=== PATIENT | female | born 1970 | race Caucasian/White ===

== ENCOUNTER 2018-01-14 08:00 | Outpatient (CLI) | payer MEDICAID ==
[2018-01-14 18:43] LABS: BASOPHILS % (AUTO) 0.6 %; EOSINOPHILS # (AUTO) 0.2 10^3/uL (0.0-0.7); HGB - HEMOGLOBIN 13.8 g/dL (12.0-16.0); LYMPHOCYTES # (AUTO) 2.1 10^3/uL (1.5-3.5); LYMPHOCYTES % (AUTO) 27.5 %; MEAN CORPUSCULAR HEMOGLOBIN 27.8 pg (27.0-31.0); MEAN CORPUSCULAR HGB CONC 33.6 g/dL (32.0-36.0); MEAN CORPUSCULAR VOLUME 82.7 fL (81.0-99.0); MEAN PLATELET VOLUME 10.2 fL (7.9-10.8); MONOCYTES # (AUTO) 0.5 10^3/uL (0.0-1.0); MONOCYTES % (AUTO) 6.1 %; NEUTROPHILS # (AUTO) 4.8 10^3/uL (1.5-6.6); NEUTROPHILS % (AUTO) 63.8 %; PLT - PLATELET COUNT 170 10^3/uL (130-450); RED BLOOD COUNT 4.97 10^6/uL (4.20-5.40); RED CELL DISTRIBUTION WIDTH 14.6 % (12.0-15.0); WHITE BLOOD COUNT 7.5 x10^3/uL (4.8-10.8)
[2018-01-14 18:53] LABS: CALCIUM 9.3 mg/dL (8.5-10.3); CREATININE 0.7 mg/dL (0.4-1.0)
[2018-01-14 19:00] LABS: HB2 TOTAL 15.1 g/dL; HEMOGLOBIN A1C 0.46 g/dL; HEMOGLOBIN A1C % 4.9 % (4.6-6.2)
[2018-01-14 19:10] LABS: THYROID STIMULATING HORMONE 0.9 uIU/mL (0.34-5.60)
[2018-01-14 19:21] LABS: FOLATE 16.25 ng/mL (5.90 - >24.8)
== END 2018-01-14 08:01 | disposition home or self-care (01) ==
LOC: LAB.N 08:00
PROVIDERS: ATTEND Physician Assistant Medical
DX: Z00.00 Encounter for general adult medical examination without abnormal findings (principal); R20.2 Paresthesia of skin; E66.9 Obesity, unspecified
CPT/HCPCS: 36415; 80048; 82607; 82746; 83036; 84443; 85025

== ENCOUNTER 2018-03-19 10:42 | Outpatient (CLI) | payer MEDICAID | END 2018-03-19 10:43 | disposition home or self-care (01) | LOC: SC 10:42 | PROVIDERS: ATTEND Internal Medicine Pulmonary Disease | DX: G47.33 Obstructive sleep apnea (adult) (pediatric) (principal); E66.9 Obesity, unspecified; Z68.37 Body mass index [BMI] 37.0-37.9, adult | CPT/HCPCS: 99203; 99212 ==

== ENCOUNTER 2018-06-03 09:55 | Outpatient (CLI) | payer MEDICAID | END 2018-06-03 09:56 | disposition home or self-care (01) | LOC: SC 09:55 | PROVIDERS: ATTEND Nurse Practitioner Family | DX: G47.33 Obstructive sleep apnea (adult) (pediatric) (principal) | CPT/HCPCS: 99212; 99214 ==

== ENCOUNTER 2018-09-02 09:11 | Outpatient (CLI) | payer MEDICAID ==
[2018-09-02 12:02] LABS: CALCIUM 9.4 mg/dL (8.5-10.3); CREATININE 0.7 mg/dL (0.4-1.0)
[2018-09-02 12:26] LABS: BASOPHILS % (AUTO) 0.6 %; EOSINOPHILS # (AUTO) 0.2 10^3/uL (0.0-0.7); EOSINOPHILS % (AUTO) 2.6 %; HGB - HEMOGLOBIN 12.5 g/dL (12.0-16.0); LYMPHOCYTES # (AUTO) 1.6 10^3/uL (1.5-3.5); LYMPHOCYTES % (AUTO) 23.4 %; MEAN CORPUSCULAR HEMOGLOBIN 27.1 pg (27.0-31.0); MEAN CORPUSCULAR HGB CONC 32.6 g/dL (32.0-36.0); MEAN CORPUSCULAR VOLUME 82.9 fL (81.0-99.0); MEAN PLATELET VOLUME 11.3 fL (7.9-10.8); MONOCYTES # (AUTO) 0.4 10^3/uL (0.0-1.0); MONOCYTES % (AUTO) 6.1 %; NEUTROPHILS # (AUTO) 4.6 10^3/uL (1.5-6.6); NEUTROPHILS % (AUTO) 66.7 %; PLT - PLATELET COUNT 171 10^3/uL (130-450); RED BLOOD COUNT 4.62 10^6/uL (4.20-5.40); RED CELL DISTRIBUTION WIDTH 13.3 % (12.0-15.0); WHITE BLOOD COUNT 6.9 x10^3/uL (4.8-10.8)
== END 2018-09-02 09:45 | disposition home or self-care (01) ==
LOC: LAB.N 09:11
PROVIDERS: ATTEND Physician Assistant Medical
DX: D64.9 Anemia, unspecified (principal)
CPT/HCPCS: 36415; 80048; 85025

== ENCOUNTER 2019-12-11 10:10 | Outpatient (CLI) | payer MEDICAID ==
[2019-12-11 11:59] LABS: BASOPHILS % (AUTO) 0.6 %; EOSINOPHILS # (AUTO) 0.1 10^3/uL (0.0-0.7); EOSINOPHILS % (AUTO) 2.4 %; HGB - HEMOGLOBIN 12.9 g/dL (12.0-16.0); LYMPHOCYTES # (AUTO) 1.5 10^3/uL (1.5-3.5); LYMPHOCYTES % (AUTO) 28.9 %; MEAN CORPUSCULAR HEMOGLOBIN 25.8 pg (27.0-31.0); MEAN CORPUSCULAR VOLUME 80.6 fL (81.0-99.0); MEAN PLATELET VOLUME 11.4 fL (7.9-10.8); MONOCYTES # (AUTO) 0.3 10^3/uL (0.0-1.0); MONOCYTES % (AUTO) 5.6 %; NEUTROPHILS # (AUTO) 3.1 10^3/uL (1.5-6.6); NEUTROPHILS % (AUTO) 61.9 %; PLT - PLATELET COUNT 163 10^3/uL (130-450); RED CELL DISTRIBUTION WIDTH 14.1 % (12.0-15.0)
[2019-12-11 12:14] LABS: ALBUMIN 4.4 g/dL (3.2-5.5); ALBUMIN/GLOBULIN RATIO 1.6 (1.0-2.2); ALKALINE PHOSPHATASE 69 IU/L (42-121); ALT ALANINE AMINOTRANSFERASE 20 IU/L (10-60); AST ASPARTATE AMINOTRANSFERASE 19 IU/L (10-42); BILIRUBIN,TOTAL 0.4 mg/dL (0.2-1.0); BUN - BLOOD UREA NITROGEN 14 mg/dL (6-20); CARBON DIOXIDE - CO2 26 mmol/L (21-32); CHLORIDE 107 mmol/L (101-111); CHOL/HDL RATIO 2.4 (<4.4); CHOLESTEROL 160 mg/dL; CREATININE 0.7 mg/dL (0.4-1.0); GLUCOSE 111 mg/dL (70-100); HDL CHOLESTEROL 67 mg/dL; LDL CHOLESTEROL,CALCULATED 81 mg/dL; LDL/HDL RATIO 1.2 (<4.4); SODIUM 140 mmol/L (135-145); TOTAL PROTEIN 7.1 g/dL (6.7-8.2); VLDL CHOLESTEROL 12 mg/dL
[2019-12-11 12:33] LABS: HEMOGLOBIN A1c% 5.2 % (4.27-6.07)
== END 2019-12-11 23:59 | disposition home or self-care (01) ==
LOC: LAB.WCP 10:10
PROVIDERS: ATTEND Physician Assistant
DX: Z00.00 Encounter for general adult medical examination without abnormal findings (principal); E66.9 Obesity, unspecified
CPT/HCPCS: 36415; 80053; 80061; 83036; 83721; 84443; 85025

== ENCOUNTER 2020-05-24 08:00 | Outpatient (CLI) | payer MEDICAID ==
[2020-05-24 17:53] LABS: BASOPHILS % (AUTO) 0.6 %; EOSINOPHILS # (AUTO) 0.2 10^3/uL (0.0-0.7); EOSINOPHILS % (AUTO) 3.5 %; HCT - HEMATOCRIT 40.6 % (37.0-47.0); HGB - HEMOGLOBIN 12.7 g/dL (12.0-16.0); LYMPHOCYTES # (AUTO) 1.9 10^3/uL (1.5-3.5); LYMPHOCYTES % (AUTO) 28.7 %; MEAN CORPUSCULAR HEMOGLOBIN 25.1 pg (27.0-31.0); MEAN CORPUSCULAR HGB CONC 31.3 g/dL (32.0-36.0); MEAN CORPUSCULAR VOLUME 80.2 fL (81.0-99.0); MEAN PLATELET VOLUME 11.5 fL (7.9-10.8); MONOCYTES # (AUTO) 0.5 10^3/uL (0.0-1.0); MONOCYTES % (AUTO) 7.2 %; NEUTROPHILS # (AUTO) 3.9 10^3/uL (1.5-6.6); NEUTROPHILS % (AUTO) 59.5 %; PLT - PLATELET COUNT 183 10^3/uL (130-450); RED BLOOD COUNT 5.06 10^6/uL (4.20-5.40); WHITE BLOOD COUNT 6.5 x10^3/uL (4.8-10.8)
[2020-05-24 18:14] LABS: ALBUMIN 4.4 g/dL (3.2-5.5); ALBUMIN/GLOBULIN RATIO 1.6 (1.0-2.2); ALKALINE PHOSPHATASE 73 IU/L (42-121); ALT ALANINE AMINOTRANSFERASE 21 IU/L (10-60); AST ASPARTATE AMINOTRANSFERASE 25 IU/L (10-42); BILIRUBIN,TOTAL 0.7 mg/dL (0.2-1.0); BUN - BLOOD UREA NITROGEN 12 mg/dL (6-20); CALCIUM 9.1 mg/dL (8.5-10.3); CARBON DIOXIDE - CO2 26 mmol/L (21-32); CHLORIDE 107 mmol/L (101-111); CHOL/HDL RATIO 2.3 (<4.4); CHOLESTEROL 165 mg/dL; CREATININE 0.8 mg/dL (0.4-1.0); GFR - MDRD 76 (>89); GLUCOSE 113 mg/dL (70-100); HDL CHOLESTEROL 71 mg/dL; LDL CHOLESTEROL,CALCULATED 82 mg/dL; LDL/HDL RATIO 1.2 (<4.4); POTASSIUM 4.5 mmol/L (3.5-5.0); SODIUM 140 mmol/L (135-145); TOTAL PROTEIN 7.1 g/dL (6.7-8.2); TRIGLYCERIDES 58 mg/dL; VLDL CHOLESTEROL 12 mg/dL
[2020-05-24 18:22] LABS: THYROID STIMULATING HORMONE 0.65 uIU/mL (0.34-5.60)
[2020-05-24 19:57] LABS: ESTIMATED AVERAGE GLUCOSE 105 mg/dL (70-100); HEMOGLOBIN A1c% 5.3 % (4.27-6.07)
== END 2020-05-24 23:59 | disposition home or self-care (01) ==
LOC: LAB.WCP 08:00
PROVIDERS: ATTEND Nurse Practitioner Family
DX: R53.83 Other fatigue (principal); D64.9 Anemia, unspecified; E66.9 Obesity, unspecified
CPT/HCPCS: 36415; 80053; 80061; 82306; 83036; 83721; 84443; 85025

== ENCOUNTER 2020-06-25 21:10 | Outpatient (CLI) | payer MEDICAID | END 2020-06-25 21:11 | disposition home or self-care (01) | LOC: LAB 21:10 | PROVIDERS: ATTEND Emergency Medicine | DX: Z53.9 Procedure and treatment not carried out, unspecified reason (principal) | CPT/HCPCS: 86317 ==

== ENCOUNTER 2020-07-16 15:40 | Outpatient (CLI) | payer MEDICAID | END 2020-07-16 15:41 | disposition home or self-care (01) | LOC: COV 15:40 | PROVIDERS: ATTEND Surgery | DX: Z01.812 Encounter for preprocedural laboratory examination (principal); K21.9 Gastro-esophageal reflux disease without esophagitis; Z12.11 Encounter for screening for malignant neoplasm of colon; G47.30 Sleep apnea, unspecified; Z20.822 Contact with and (suspected) exposure to COVID-19 ==

== ENCOUNTER 2020-07-19 11:08 | Day surgery (SDC) | payer MEDICAID ==
[2020-07-19 11:30] LABS: HCG UR QUAL NEGATIVE
[2020-07-19] MEDS ORDERED: LACTATED RINGERS 1,000 ML IV ONE ×2 (11:30→14:07)
--- NOTE | 2020-07-19 12:16 | ANESTHESIA ---
Pre-Anesthesia VS, & Labs - Diagnosis screening exam, GERD - Procedure EGD, Colonoscopy Height: 5 ft Weight (kg): 97 kg Body Mass Index: 41.8 BMI Classification: Morbidly Obese - NPO >8 hours - Is Patient ?: No Home Medications and Allergies Home Medications: Ambulatory Orders DULoxetine [Cymbalta] 30 mg PO DAILY 07/16/20 Nortriptyline [Pamelor] 30 mg PO DAILY 07/16/20 DULoxetine [Cymbalta] 30 mg PO DAILY 07/16/20 Nortriptyline [Pamelor] 30 mg PO DAILY 07/16/20 Allergies/Adverse Reactions: Allergies Allergy/AdvReac Type Severity Reaction Status Date / Time gluten AdvReac Cramps Verified 07/16/20 13:46 penicillin G AdvReac Cramps Verified 07/16/20 13:46 Anes History & Medical History - Medical History Cardiovascular: reports: None Pulmonary: reports: Sleep apnea, CPAP use Gastrointestinal: reports: GERD (2 times per week, occasionally) Urinary: reports: Incontinence Neuro: reports: None Musculoskeletal: reports: None Endocrine/Autoimmune: reports: None Blood Disorders: reports: None Skin: reports: None Smoking Status: Former smoker (Quit 2006) Psychosocial: reports: Depression, Other (Fibromyalgia) History of Cancer?: Yes (Breast cancer) - Surgical History General: reports: Other Eyes Ears Nose Throat (EENT): reports: Tonsil/Adenoidectomy Gynecologic: reports: Mastectomy (Bilateral) Exam General: Alert, Oriented x3, Cooperative, No acute distress Dental: WNL Mouth Openin Fingerbreadth Neck Mobility: Normal Mallampati classification: III Thyromental Distance: 4-6 cm Mental/Cognitive Status: Alert/Oriented X3, Normal for patient Plan Anesthesia Type: Total IV Consent for Procedure(s) Verified and Reviewed: Yes Code Status: Attempt Resuscitation ASA classification: 2-Mild systemic disease Is this case an emergency?: No
[2020-07-19] MEDS ORDERED: MIDAZOLAM 2 MG/2 ML VIAL ONE (13:06)
[2020-07-19] MEDS ORDERED: PROPOFOL 200 MG/20 ML VIAL IVP ONE (13:06)
[2020-07-19] MEDS ORDERED: fentaNYL 100 MCG/2 ML VIAL ONE (13:06)
[2020-07-19] MEDS ORDERED: LIDOCAINE-MPF 2% 5 ML VIAL ONE (13:30)
[2020-07-19] MEDS ORDERED: ACETAMINOPHEN 500 MG TABLET PO ONE (14:15)
--- NOTE | 2020-07-19 14:16 | ANESTHESIA POST OP EVALUATION ---
Anesthesia Post Eval - Post Anesthesia Eval Vitals: Last Vital Signs Temp 36.8 C 07/19/20 14:03 Pulse 105 H 07/19/20 14:10 Resp 24 07/19/20 14:10 BP 93/67 07/19/20 14:10 Pulse Ox 99 07/19/20 14:10 CV Function Including HR & BP: Stable Pain Control: Satisfactory Nausea & Vomiting: Negative Mental Status: Baseline Respiratory Status: Airway Patent Hydration Status: Satisfactory Anesthesia Complications: None
[2020-07-19 14:40] VITALS: BP 110/68
== END 2020-07-19 11:09 | disposition home or self-care (01) ==
LOC: SDS 11:08
PROVIDERS: ATTEND Surgery
PROC: 0DB48ZX Excision of Esophagogastric Junction, Via Natural or Artificial Opening Endoscopic, Diagnostic (ICD-10-PCS; principal; 2020-07-19 12:15)
PROC: 0DJD8ZZ Inspection of Lower Intestinal Tract, Via Natural or Artificial Opening Endoscopic (ICD-10-PCS; 2020-07-19 12:15)
DX: Z12.11 Encounter for screening for malignant neoplasm of colon (principal); K21.00 Gastro-esophageal reflux disease with esophagitis, without bleeding; K64.8 Other hemorrhoids; G47.30 Sleep apnea, unspecified; R32 Unspecified urinary incontinence; E66.01 Morbid (severe) obesity due to excess calories; M79.7 Fibromyalgia; F32.9 Major depressive disorder, single episode, unspecified; Z68.41 Body mass index [BMI] 40.0-44.9, adult; Z79.899 Other long term (current) drug therapy; Z87.891 Personal history of nicotine dependence; Z85.3 Personal history of malignant neoplasm of breast; Z90.13 Acquired absence of bilateral breasts and nipples
CPT/HCPCS: 43239; 45378; 81025; A9270; J7120

== ENCOUNTER 2020-08-11 11:39 | Outpatient (CLI) | payer MEDICAID ==
--- NOTE | 2020-08-11 12:07 | SLEEP CARE CONSULTATION ---
Information from patient questionnaire entered by Lauren Hawley. I have reviewed and concur with the information entered by Lauren Hawley. This document represents the service I personally performed and the decisions made by , Jazzy Pearson ARNP. History of Present Illness Service Date and Time: 08/11/2020 1139 Previous diagnosis: Mild, Obstructive Sleep Apnea-Hypopnea Syndrome AHI: 8.4 (in 2016) Reason for follow up: annual (last seen 08/2019) Equipment type: CPAP Equipment obtained from: [facility] (getting supplies as needed) Mask style: Full face Backup mask available: Yes (old mask) Last cushion change: 1.5 months Prior sleep studies: Yes Year and Where: 2016 - [facility] in [facility] additional information: JESUS CHAVEZ was diagnosed to have mild, AHI 8.4, obstructive sleep apnea- hypopnea syndrome and returns via Telehealth today for CPAP therapy annual follow-up. CPAP Compliance Data - Data Reviewed with Patient Average duration of nightly device use: 9 hr 21 min Compliance rate %: 97 (180 days) Current pressure setting (cmH2O): 5-13 Humidity settin Average residual AHI: 1.0 Subjective Patient concerns: reports: air blowing in eyes, mask leak noise (due to wear and tear of supplies), dry mouth, nose, throat (does have allergies which contribute). denies: aerophagia, mask discomfort, condensation in mask/hose, nasal congestion, epistaxis, other Observed to snore while using device: Yes (occasionally will wake herself up at beginning of night, not in middle nigh) Current pressure setting perceived as: comfortable On therapy, patient: reports: sleeping better, awakening more refreshed, being more awake and alert during the day, more rested overall. denies: drowsiness while driving Initial [place] Sleepiness Scale score: 11 (in 2019) Current [place] Sleepiness Scale score: 3 Allergies and Home Medications Home medication list reviewed: Yes (Amitriptyline 30 mg) Review of Systems Review of systems same as previous: Yes (no changes) Physical Exam Vital signs obtained and entered by: Telehealth visit to reduce exposure during Covid pandemic Height: 5 ft Weight change since last visit: 10-15 lb gain possibly per patient Impression and Plan 1. Obstructive Sleep Apnea-Hypopnea Syndrome, mild, with good treatment compliance and good apnea control. On CPAP therapy, the patient has better sleep quality and is more rested overall. Patient states she does sometimes get some air in her eyes and mouth noises when her headgear has to be tightened due to wear and tear. She is using [facility] for her DME and she states sometimes she would like to change her mask but they want a mask fitting. She would like to have someone who would just look at her old measurements and get her mask without her having to go into the office for another fitting. She states she is going to give them a call and check to see if they can do that before she decides to transfer her DME. She will let us know if there needs to be a transfer of care. No other changes needed today. Patient's apnea severity and rationale for treatment to reduce apnea, improve sleep quality and reduce cardiovascular and cerebrovascular events was reviewed. * Continue auto CPAP pressure at 5-13 cmH2O * Notify me if snoring with mask or feeling that the pressure is too much or too little * Attempt to lose weight * Call this office if any problems using CPAP * Return for follow up in 1 year, or sooner if concerns arise Counseling Topics: Spare mask, Weight loss health impact Visit Type: Telehealth Video Video Type: VSee Patient Location: Home Location of Provider: Office Patient agrees and consents to this telehealth visit type: Yes Patient agrees to have their insurance billed: Yes Time Spent with Patient (minutes): 17 Provider Statement: I spent 100% of the Telehealth Video Call with the patient with greater than 50% spent counseling the patient and coordination of care.
== END 2020-08-11 11:40 | disposition home or self-care (01) ==
LOC: SC 11:39
PROVIDERS: ATTEND Nurse Practitioner Family
DX: G47.33 Obstructive sleep apnea (adult) (pediatric) (principal)

== ENCOUNTER 2021-09-22 10:17 | Outpatient (CLI) | payer BC ==
[2021-09-22 11:07] VITALS: BP 129/79
--- NOTE | 2021-09-22 11:07 | SLEEP CARE CONSULTATION ---
Information from patient questionnaire entered by Mart Crum MA. I have reviewed and concur with the information entered by Mart Crum MA. This document represents the service I personally performed and the decisions made by , Jazzy Pearson ARNP. History of Present Illness Service Date and Time: 09/22/2021 1017 Previous diagnosis: Mild, Obstructive Sleep Apnea-Hypopnea Syndrome AHI: 8.4 (in 2015) Reason for follow up: annual (LAST SEEN 08/2020, RESMED, SHELBY 04/03/2018, ) Equipment type: CPAP Equipment obtained from: Other ([facility]; getting supplies as needed) Mask style: Full face Mask brand: Resmed (Airfit) Backup mask available: Yes (old mask) Last cushion change: too long Prior sleep studies: Yes Year and Where: 2015 - [facility] in [place], [place] HPI additional information: JESUS CHAVEZ was diagnosed to have mild, AHI 8.4, obstructive sleep apnea- hypopnea syndrome and returned today for CPAP therapy annual follow-up. Sleep Study - Results Prior sleep studies: Yes Year and Where: 2015 - [facility] in [place], [place] CPAP Compliance Data - Data Reviewed with Patient Average duration of nightly device use: 9 HOURS 6 MINUTES Compliance rate %: 99 (03/25/21-09/20/21; 179/180 days used) Current pressure setting (cmH2O): 5-13 Average residual AHI: 1.2 Central apnea: .1 Obstructive apnea: .6 Hypopnea: .2 Average large leak: .1 Subjective Missed days of use due to: reports: other (power outage) Patient concerns: reports: air blowing in eyes (needs to replace cushion). denies: aerophagia, mask discomfort, mask leak noise, condensation in mask/hose, nasal congestion, dry mouth, nose, throat, epistaxis, other Observed to snore while using device: Yes (just when falling asleep during ramp time) Current pressure setting perceived as: comfortable On therapy, patient: reports: more rested overall, other (uses to keep oxygen level up and to treat fibromyalgia). denies: drowsiness while driving Initial [place] Sleepiness Scale score: 11 (in 2019) Current [place] Sleepiness Scale score: 13 Allergies and Home Medications Known drug allergies: Yes (PN) Home medication list reviewed: Yes (Nortriptyline; Duloxetine) Allergy and home medication list: Allergies gluten Adverse Reaction (Verified 07/16/20 13:46) Cramps penicillin G Adverse Reaction (Verified 07/16/20 13:46) Cramps Review of Systems Review of systems same as previous: Yes (allergy testing for chronic cough) Physical Exam Vital signs obtained and entered by: Frank MOY CMA AAESMER Blood Pressure: 129/79 (RESP 16, PULSE 79, RIGHT) Heart Rate: 77 O2 Saturation: 97 (N95) Height: 5 ft Weight: 220 lb (CLOTHES) Weight change since last visit: LOSE - GLUTEN DIET, NO SUGAR Body Mass Index: 43.0 BMI Classification: Morbidly Obese Impression and Plan 1. Obstructive Sleep Apnea-Hypopnea Syndrome, mild, with good treatment compliance and good apnea control. On CPAP therapy, the patient has better sleep quality and is more rested overall. Patient is satisfied with current CPAP therapy and feels the pressure is comfortable. She does have a history of fibromyalgia so her [place] is still a little elevated, probably more related to her fibromyalgia. She states she had a friend tell her that she snored as she was falling asleep when they went on a trip together when she had her CPAP on. We discussed that this is probably due to the ramp starting pressure not being enough since she normally needs at least 12 cm H2O for good apnea control. She voiced understanding. Patient denies problems with oral dryness, nasal congestion, epistaxis, skin irritation or aerophagia. Patient's apnea severity and rationale for treatment to reduce apnea, improve sleep quality and reduce cardiovascular and cerebrovascular events was reviewed. 2. Obesity, unspecified. Currently patients BMI is [43.0]. Obesity increases the risk of apnea, CPAP pressure requirements and overall health risks especially cardiovascular and diabetes. Thus patient is advised to[ continue to try to] lose weight. Weight loss can be done with reducing portion size, redu cing refined foods and balancing content with vegetables, fruit and whole grain foods. In addition, patient encouraged to get regular exercise. * Continue auto CPAP pressure at 5-13 cmH2O * Notify me if snoring with mask or feeling that the pressure is too much or too little * Attempt to lose weight * Call this office if any problems using CPAP * Return for follow up in 1 year, or sooner if concerns arise Counseling Topics: Spare mask, Weight loss health impact Visit Type: In Office Time Spent with Patient (minutes): 23 Provider Statement: I spent 100% of the Face to Face Visit with the patient with greater than 50% spent counseling the patient and coordination of care.
== END 2021-09-22 10:18 | disposition home or self-care (01) ==
LOC: SC 10:17
PROVIDERS: ATTEND Nurse Practitioner Family
DX: G47.33 Obstructive sleep apnea (adult) (pediatric) (principal); E66.01 Morbid (severe) obesity due to excess calories; Z68.41 Body mass index [BMI] 40.0-44.9, adult
CPT/HCPCS: 99212; 99213

== ENCOUNTER 2021-10-27 13:31 | Outpatient (CLI) | payer BC ==
--- NOTE | 2021-10-28 10:58 | Ultrasound Report ---
ULTRASOUND OF LEFT BREAST: 10/27/2021 CLINICAL: Patient returns today to evaluate an asymmetry in the left breast / chest... luoq per order . Pt has no compalint rt breast / chest. No prior exams were available for comparison. Real-time ultrasound of the left breast was performed. Pollock scale images of the real-time examinati on were reviewed. The right axilla was interogated and normal appearing lymph nodes are visualized. IMPRESSION: BENIGN No right axillary adenopathy. There is no sonographic evidence of malignancy. There is no sonographic abnormality seen at the right chest wall to correspond with the palpable abno rmality, however, clinical followup is recommended. This exam was interpreted at Station ID: [id number]. Electronically Signed By: Heather Dejesus M.D. lk/:10/27/2021 14:27:35 Ultrasound BI-RADS: 2 Benign BI-RADS CATEGORY: (2) - 2 RECOMMENDATION: (ANNUAL) - Recommend routine annual screening mammography. [id number] 1 year screening LATERALITY: (B)
== END 2021-10-27 13:32 | disposition home or self-care (01) ==
LOC: DI 13:31
PROVIDERS: ATTEND Nurse Practitioner
DX: I97.2 Postmastectomy lymphedema syndrome (principal)

== ENCOUNTER 2021-12-21 12:22 | Outpatient (CLI) | payer BC ==
[2021-12-21 12:35] LABS: BASOPHILS % (AUTO) 0.4 %; EOSINOPHILS # (AUTO) 0.2 10^3/uL (0.0-0.7); EOSINOPHILS % (AUTO) 2.8 %; LYMPHOCYTES % (AUTO) 27.2 %; MEAN CORPUSCULAR HEMOGLOBIN 26.6 pg (27.0-31.0); MEAN CORPUSCULAR HGB CONC 32.6 g/dL (32.0-36.0); MEAN CORPUSCULAR VOLUME 81.6 fL (81.0-99.0); MEAN PLATELET VOLUME 10.5 fL (7.9-10.8); MONOCYTES # (AUTO) 0.5 10^3/uL (0.0-1.0); NEUTROPHILS # (AUTO) 4.6 10^3/uL (1.5-6.6); NEUTROPHILS % (AUTO) 62.2 %; PLT - PLATELET COUNT 179 10^3/uL (130-450); RED BLOOD COUNT 5.27 10^6/uL (4.20-5.40); RED CELL DISTRIBUTION WIDTH 14.4 % (12.0-15.0); WHITE BLOOD COUNT 7.4 x10^3/uL (4.8-10.8)
[2021-12-21 13:03] LABS: ALBUMIN 4.6 g/dL (3.2-5.5); ALBUMIN/GLOBULIN RATIO 1.8 (1.0-2.2); BILIRUBIN,TOTAL 0.6 mg/dL (0.2-1.0); CREATININE 0.9 mg/dL (0.4-1.0); POTASSIUM 4.1 mmol/L (3.5-5.0); TOTAL PROTEIN 7.2 g/dL (6.7-8.2)
[2021-12-21 13:06] LABS: THYROID STIMULATING HORMONE 0.88 uIU/mL (0.34-5.60)
[2021-12-21 13:14] LABS: FERRITIN 28.1 ng/mL (11.0-306.8)
[2021-12-21 13:17] LABS: FOLATE 9.5 ng/mL (5.90 - >24.8)
== END 2021-12-21 12:23 | disposition home or self-care (01) ==
LOC: LAB 12:22
PROVIDERS: ATTEND Family Medicine
DX: E56.9 Vitamin deficiency, unspecified (principal); M79.7 Fibromyalgia; R53.82 Chronic fatigue, unspecified; Z85.3 Personal history of malignant neoplasm of breast
CPT/HCPCS: 36415; 80053; 82306; 82607; 82728; 82746; 83540; 84443; 84466; 85025

== ENCOUNTER 2022-10-04 15:13 | Outpatient (CLI) | payer BC ==
--- NOTE | 2022-10-04 15:25 | SLEEP CARE CONSULTATION ---
Information from patient questionnaire entered by Jeanna Quinonez. I have reviewed and concur with the information entered by Jeanna Quinonez. This document represents the service I personally performed and the decisions made by , Jazzy Pearson ARNP. History of Present Illness Service Date and Time: 10/04/2022 1500 Previous diagnosis: Mild, Obstructive Sleep Apnea-Hypopnea Syndrome AHI: 8.4 (in 2015) Reason for follow up: annual (Last seen 09/2021) Equipment type: CPAP (Airsense 10, s/u 03/2018) Equipment obtained from: Other ([facility]; getting supplies as needed) Mask style: Full face Mask brand: Respironics (Co.Importwear) Backup mask available: Yes (old mask) Last cushion change: couple months Prior sleep studies: Yes Year and Where: 2015 - [facility] in [place], [place] HPI additional information: JESUS CHAVEZ was diagnosed to have mild, AHI 8.4, obstructive sleep apnea- hypopnea syndrome and returned today for CPAP therapy annual follow-up. Sleep Study - Results Prior sleep studies: Yes Year and Where: 2015 - [facility] in [place], [place] CPAP Compliance Data - Data Reviewed with Patient Average duration of nightly device use: 8 h 51 min Compliance rate %: 98 (180/180 days used) Current pressure setting (cmH2O): 5-13 (avg 12.8) Average residual AHI: 2.8 Central apnea: 0.1 Obstructive apnea: 2 Hypopnea: 0.5 Average large leak: 0.1 L/min Subjective Missed days of use due to: reports: other (power outage) Patient concerns: reports: air blowing in eyes (occasional), mask leak noise (occasional), other (rash on face). denies: aerophagia, mask discomfort, condensation in mask/hose, nasal congestion, dry mouth, nose, throat, epistaxis Observed to snore while using device: Yes (in the beginning of night) Current pressure setting perceived as: comfortable On therapy, patient: reports: sleeping better, awakening more refreshed, being more awake and alert during the day, more rested overall, drowsiness while driving (little bit during day, in afternoon mainly) Initial [place] Sleepiness Scale score: 11 (in 2018) Current [place] Sleepiness Scale score: 12 Allergies and Home Medications Known drug allergies: Yes (penicillin G) Drug allergies reviewed: Yes Home medication list reviewed: Yes (no changes) Allergy and home medication list: Allergies gluten Adverse Reaction Cramps penicillin G Adverse Reaction Cramps Review of Systems Review of systems same as previous: No (hypersensitivity cough) Physical Exam Vital signs obtained and entered by: Jazzy Colin NP Blood Pressure: 114/75 Cuff size: wrist (right) Heart Rate: 82 O2 Saturation: 99 Height: 5 ft Weight: 221 lb 9.6 oz Body Mass Index: 43.2 BMI Classification: Morbidly Obese Impression and Plan 1. Obstructive Sleep Apnea-Hypopnea Syndrome, mild, with good treatment compliance and good apnea control. On CPAP therapy, the patient has better sleep quality and is more rested overall. She states she still has snoring when she initially puts her mask on. To resolve snore, the CPAP pressure will be changed to 8-13 cmH20. Patient advised to contact this office if pressure change uncomfortable or if pressure change does not resolve snore. Patient's apnea severity and rationale for treatment to reduce apnea, improve sleep quality and reduce cardiovascular and cerebrovascular events was reviewed. I also reviewed the benefit of consistent device use of CPAP for fibromyalgia. 2. Obesity, unspecified. Currently patients BMI is 43.2. Obesity increases the risk of apnea, CPAP pressure requirements and overall health risks especially cardiovascular and diabetes. Thus patient is advised to lose weight. * Change auto CPAP pressure to 8-13 cmH2O * Update supply prescription * Notify me if snoring with mask or feeling that the pressure is too much or too little * Attempt to lose weight * Call this office if any problems using CPAP * Return for follow up in 1 year, or sooner if concerns arise Counseling Topics: Spare mask, Weight loss health impact Visit Type: In Office Time Spent with Patient (minutes): 24 Provider Statement: I spent 100% of the Face to Face Visit with the patient with greater than 50% spent counseling the patient and coordination of care.
[2022-10-04 15:31] VITALS: BP 114/75
== END 2022-10-04 15:14 | disposition home or self-care (01) ==
LOC: SC 15:13
PROVIDERS: ATTEND Nurse Practitioner Family
DX: G47.33 Obstructive sleep apnea (adult) (pediatric) (principal); E66.01 Morbid (severe) obesity due to excess calories; Z68.41 Body mass index [BMI] 40.0-44.9, adult
CPT/HCPCS: 99212; 99213

== ENCOUNTER 2023-04-04 12:36 | Outpatient (CLI) | payer BC ==
--- NOTE | 2023-04-04 12:02 | SLEEP CARE CONSULTATION ---
Information from patient questionnaire entered by Tadeo Estrada. I have reviewed and concur with the information entered by Tadeo Estrada. This document represents the service I personally performed and the decisions made by me, Jazzy Pearson ARNP. History of Present Illness Service Date and Time: 04/04/2023 1120 Previous diagnosis: Mild, Obstructive Sleep Apnea-Hypopnea Syndrome AHI: 8.4 (in 2015) Reason for follow up: other (5 MONTH F/U) Equipment type: CPAP (Airsense 10, s/u 03/2018) Equipment obtained from: Other ([facility]; getting supplies as needed) Mask style: Full face Mask brand: Respironics (Dreamwear) Backup mask available: Yes (old mask) Last cushion change: couple weeks ago Prior sleep studies: Yes Year and Where: 2015 - [facility] in [facility] additional information: JESUS CHAVEZ was diagnosed to have mild, AHI 8.4, obstructive sleep apnea- hypopnea syndrome and returns via video appointment today for CPAP therapy 5 month follow-up. Sleep Study - Results Prior sleep studies: Yes Year and Where: 2015 - [facility] in [place], [place] CPAP Compliance Data - Data Reviewed with Patient Average duration of nightly device use: 8 HRS 48 MINS Compliance rate %: 97 (11/01/22-04/01/23; 148/152 days used) Current pressure setting (cmH2O): 8-13 Average residual AHI: 1.5 Central apnea: 0.1 Obstructive apnea: 1 Hypopnea: 0.3 Average large leak: 0 L/min Subjective Missed days of use due to: reports: travel, other (power outages) Patient concerns: reports: dry mouth, nose, throat (dry mouth). denies: aerophagia, mask discomfort, air blowing in eyes, mask leak noise, condensation in mask/hose, nasal congestion, epistaxis Observed to snore while using device: No Current pressure setting perceived as: comfortable On therapy, patient: reports: sleeping better, awakening more refreshed, being more awake and alert during the day, more rested overall, drowsiness while driving (some in the afternoon on long trips) Initial [place] Sleepiness Scale score: 11 (in 2018) Current [place] Sleepiness Scale score: 13 (04/04/23) Allergies and Home Medications Known drug allergies: Yes (as listed) Drug allergies reviewed: Yes Home medication list reviewed: Yes (Flonase) Allergy and home medication list: Allergies gluten Adverse Reaction (Verified 04/02/23 09:29) Cramps penicillin G Adverse Reaction (Verified 04/02/23 09:29) Cramps Review of Systems Review of systems same as previous: Yes (NO CHANGE) Physical Exam Vital signs obtained and entered by: TADEO Sparrow MA Height: 5 ft (PER PT) Weight: 220 lb (PER PT) Body Mass Index: 43.0 BMI Classification: Morbidly Obese Impression and Plan 1. Obstructive Sleep Apnea-Hypopnea Syndrome, mild, with good treatment compliance and good apnea control. On CPAP therapy, the patient has better sleep quality and is more rested overall. His ResMed Airsense 10 was last updated in 03/2018. The patients CPAP is over 5 years old and of reasonable use. Thus, the CPAP will be updated. The new CPAPs also have a better humidity system which could assist control of patients dryness symptoms. A DWO prescription will be made. Compliance guidelines for new device and follow up discussed. Patient's apnea severity and rationale for treatment to reduce apnea, improve sleep quality and reduce cardiovascular and cerebrovascular events was reviewed. I also reviewed the benefit of consistent device use of CPAP for fibromyalgia. 2. Obesity, unspecified. Currently patients BMI is 43. Obesity increases the risk of apnea, CPAP pressure requirements and overall health risks especially cardiovascular and diabetes. Thus patient is advised to lose weight. * Continue auto CPAP pressure at 8-13 cmH2O * Update machine and supplies * Notify me if snoring with mask or feeling that the pressure is too much or too little * Attempt to lose weight * Call this office if any problems using CPAP * Return for follow up one month after obtaining new device, or sooner if concerns arise Counseling Topics: Spare mask, Weight loss health impact Visit Type: Telehealth Video Video Type: Doximity Patient Location: Home Location of Provider: Office Patient agrees and consents to this telehealth visit type: Yes Patient agrees to have their insurance billed: Yes Time Spent with Patient (minutes): 26 Provider Statement: I spent 100% of the Telehealth Video Call with the patient with greater than 50% spent counseling the patient and coordination of care.
== END 2023-04-04 12:37 | disposition home or self-care (01) ==
LOC: SC 12:36
PROVIDERS: ATTEND Nurse Practitioner Family
DX: G47.33 Obstructive sleep apnea (adult) (pediatric) (principal); E66.01 Morbid (severe) obesity due to excess calories; Z68.41 Body mass index [BMI] 40.0-44.9, adult

== ENCOUNTER 2023-05-22 21:12 | Outpatient (CLI) | payer BC ==
--- NOTE | 2023-05-23 21:06 | XRAY Report ---
PROCEDURE: Chest 2V INDICATIONS: ACUTE COUGH TECHNIQUE: 2 views of the chest were acquired. COMPARISON: None. FINDINGS: Surgical changes and devices: None. Lungs and pleura: No pleural effusions or pneumothorax. Lungs are clear. Mediastinum: Mediastinal contours appear normal. Heart size is normal. Bones and chest wall: No suspicious bony lesions. Overlying soft tissues appear unremarkable. IMPRESSION: No acute cardiopulmonary process. Reviewed by: Jesus Rhodes MD on 05/23/2023 9:05 PM PDT Approved by: Jesus Rhodes MD on 05/23/2023 9:05 PM PDT Station ID: [id number]
== END 2023-05-22 21:13 | disposition home or self-care (01) ==
LOC: DI 21:12
PROVIDERS: ATTEND Physician Assistant
DX: R05.1 Acute cough (principal)

== ENCOUNTER 2023-07-18 11:29 | Outpatient (CLI) | payer BC ==
--- NOTE | 2023-07-18 11:54 | Sleep Patient Instructions ---
Sleep Center Visit Summary - Patient Visit Information Reason for Visit: First compliance follow-up - Patient Instructions Additional Instructions: You were here for follow up of CPAP therapy. You will be continued on CPAP therapy with pressure at 8-12 cmH2O. You should follow up with sleep care in 12 months. You may contact us sooner for any questions or concerns. - Clinic Information Contact: [facility] [address] [place] [address] [email or web address] T: [phone]
--- NOTE | 2023-07-18 11:57 | SLEEP CARE CONSULTATION ---
Information from patient questionnaire entered by Tadeo Estrada. I have reviewed and concur with the information entered by Tadeo Estrada. This document represents the service I personally performed and the decisions made by me, Jazzy Pearson ARNP. History of Present Illness Service Date and Time: 07/18/2023 112 Previous diagnosis: Mild, Obstructive Sleep Apnea-Hypopnea Syndrome AHI: 8.4 (in 2015) Reason for follow up: first compliance after device update Equipment type: CPAP (Airsense 11, S/U 05/15/23) Equipment obtained from: Other ([facility]; getting supplies as n eeded) Mask style: Full face Mask brand: Respironics (Dreamwear) Backup mask available: Yes Last cushion change: couple weeks Prior sleep studies: Yes Year and Where: 2015 - [place], [place] HPI additional information: JESUS CHAVEZ was diagnosed to have mild, AHI 8.6, obstructive sleep apnea- hypopnea syndrome and returned today for CPAP therapy first compliance after updating device follow-up. Sleep Study - Results Prior sleep studies: Yes Year and Where: 2015 - [place], [place] CPAP Compliance Data - Data Reviewed with Patient Average duration of nightly device use: 8 HRS 33 MINS Compliance rate %: 97 (05/15/23-06/13/23; 29/30 days used) Current pressure setting (cmH2O): 8-13 Average residual AHI: 3.3 Central apnea: 0 Obstructive apnea: 2.1 Hypopnea: 1.1 Average large leak: 0 L/min Subjective Patient concerns: reports: mask leak noise, other (CPAP Hair and face). denies: aerophagia, mask discomfort, air blowing in eyes, condensation in mask/hose, nasal congestion, dry mouth, nose, throat, epistaxis Observed to snore while using device: No Current pressure setting perceived as: comfortable On therapy, patient: reports: sleeping better, awakening more refreshed, being more awake and alert during the day, more rested overall. denies: drowsiness while driving Initial [place] Sleepiness Scale score: 11 (in 2018) Current [place] Sleepiness Scale score: 11 (07/18/23) Allergies and Home Medications Known drug allergies: Yes (as listed) Drug allergies reviewed: Yes Home medication list reviewed: Yes (Diclofenac) Allergy and home medication list: Allergies gluten Adverse Reaction (Verified 07/16/23 10:08) Cramps penicillin G Adverse Reaction (Verified 07/16/23 10:08) Cramps Review of Systems Review of systems same as previous: No (TRIGGER FINGER) Physical Exam Vital signs obtained and entered by: TADEO Sparrow MA Blood Pressure: 135/81 (RIGHT ARM) Cuff size: long Heart Rate: 83 O2 Saturation: 99 Height: 5 ft (PER PT) Weight: 231 lb 9.6 oz Body Mass Index: 45.2 BMI Classification: Morbidly Obese Impression and Plan 1. Obstructive Sleep Apnea-Hypopnea Syndrome, mild, with good treatment compliance and good apnea control. On CPAP therapy, the patient has better sleep quality and is more rested overall. She has significant improvement of her sleep apnea and likes the new CPAP. She denies any major issues with using her CPAP. She is continuing with the full face mask. We will followup with her next year. Patient's apnea severity and rationale for treatment to reduce apnea, improve sleep quality and reduce cardiovascular and cerebrovascular events was reviewed. I also reviewed the benefit of consistent device use of CPAP for fibromyalgia. 2. Obesity, unspecified. Currently patients BMI is 45.2. Obesity increases the risk of apnea, CPAP pressure requirements and overall health risks especially cardiovascular and diabetes. Thus patient is advised to lose weight. * Continue auto CPAP pressure at 8-13 cmH2O * Notify me if snoring with mask or feeling that the pressure is too much or too little * Attempt to lose weight * Call this office if any problems using CPAP * Return for follow up in 12 months, or sooner if concerns arise Counseling Topics: Spare mask, Weight loss health impact Follow up with Sleep Care in: 1 year Visit Type: In Office Time Spent with Patient (minutes): 20 Provider Statement: I spent 100% of the Face to Face Visit with the patient with greater than 50% spent counseling the patient and coordination of care.
[2023-07-18 11:58] VITALS: BP 135/81; O2SAT 99
== END 2023-07-18 11:30 | disposition home or self-care (01) ==
LOC: SC 11:29
PROVIDERS: ATTEND Nurse Practitioner Family
DX: G47.33 Obstructive sleep apnea (adult) (pediatric) (principal); E66.01 Morbid (severe) obesity due to excess calories; Z68.42 Body mass index [BMI] 45.0-49.9, adult
CPT/HCPCS: 99212; 99213

== ENCOUNTER 2023-09-15 11:04 | Outpatient (CLI) | payer BC ==
--- NOTE | 2023-09-15 22:52 | Ultrasound Report ---
PROCEDURE: Abdomen Limited INDICATIONS: RIGHT COSTOCHRONDITIS TECHNIQUE: Real-time focused scanning was performed of the abdomen, with image documentation. COMPARISONS: None. FINDINGS: Liver: Liver is enlarged and measures 19.4 cm in length. Diffusely increased liver parenchymal echot exture is seen, no discrete hepatic lesion. Gallbladder: No gallstones, sludge, wall thickening or pericholecystic edema. Biliary ducts: Intrahepatic bile ducts are non-dilated. Extrahepatic bile duct caliber measures 3 m m. Normal is 6-7 mm or less in diameter, or 10 mm or less post-cholecystectomy. Pancreas: Visualized portions of the pancreas are sonographically normal. Right kidney: Normal in size and echotexture. Right kidney measures 9.4 cm long. No hydronephrosis. 7 mm echogenic focus within mid pole right kidney is noted. No solid masses. No complex renal cystic lesions which require follow-up. IVC: Intrahepatic inferior vena cava is patent. Miscellaneous: No free abdominal fluid. IMPRESSION: 1. Hepatomegaly and hepatic steatosis. No discrete hepatic lesion. 2. Normal-appearing gallbladder. No biliary ductal dilatation. 3. Normal-appearing visualized portion of pancreas. 4. Nonobstructing right renal calculus measures 7 mm in size. No hydronephrosis or solid appearing re nal lesion. Reviewed by: Jesus Solano MD on 09/15/2023 10:51 PM PDT Approved by: Jesus Solano MD on 09/15/2023 10:51 PM PDT Station ID: [id number]
== END 2023-09-15 11:05 | disposition home or self-care (01) ==
LOC: DI 11:04
PROVIDERS: ATTEND Physician Assistant
DX: M94.0 Chondrocostal junction syndrome [Tietze] (principal); K76.0 Fatty (change of) liver, not elsewhere classified; R16.0 Hepatomegaly, not elsewhere classified; N20.0 Calculus of kidney